=== PATIENT | male | born 1995 | race Caucasian/White ===

== ENCOUNTER 2017-04-11 12:31 | Inpatient (IN) | payer MEDICAID ==
[~2017-04-11] VITALS: Ht 170.2 cm; Wt 71.4 kg
--- NOTE | 2017-04-11 14:18 | PD ---
HPI Chief Complaint: Psychiatric Symptoms Time Seen by Provider: 13:40 Travel History International Travel<30 days: No Contact w/Intl Traveler<30days: No Traveled to known affect area: No History of Present Illness HPI 22-year-old male that presents to the ED for evaluation of Garcia act. Patient was clear at [facility] and was medically clear. Patient apparently has a history of suicidal ideation and try to cut himself on the neck with a plastic fork. Per patient his mother took away all the tonsils because of his suicidal ideation. Patient is with depression. Patient states that he did drink alcohol yesterday. Per patient is being Garcia acted in the past. He superficial scratches to his neck. He was evaluated for the hospitalist had CAT scans and labs that were essentially unremarkable other than for positive alcohol on 200s. Patient was brought here for psych evaluation. Patient was already medically clear. Patient voices no complaints at this time. No other medical issues. Symptoms appear to have worsened yesterday secondary to an argument that she had with mother as well as alcohol. [facility] Social History Alcohol Use: Yes Tobacco Use: No Substance Use: Yes Review of Systems Except as stated in HPI: all other systems reviewed are Neg Physical Exam Narrative GENERAL: SKIN: Warm and dry. Superficial abrasions to the neck. HEAD: Atraumatic. Normocephalic. EYES: Pupils equal and round. No scleral icterus. No injection or drainage. ENT: No nasal bleeding or discharge. Mucous membranes pink and moist. Tongue is midline. No uvula deviation. NECK: Trachea midline. No JVD. CARDIOVASCULAR: Regular rate and rhythm. RESPIRATORY: No accessory muscle use. Clear to auscultation. Breath sounds equal bilaterally. GASTROINTESTINAL: Abdomen soft, non-tender, nondistended. Hepatic and splenic margins not palpable. MUSCULOSKELETAL: Extremities without clubbing, cyanosis, or edema. No obvious deformities. NEUROLOGICAL: Awake and alert. No obvious cranial nerve deficits. Motor grossly within normal limits. Five out of 5 muscle strength in the arms and legs. Normal speech. PSYCHIATRIC: Appropriate mood and affect; insight and judgment normal. Data Data Orders Orders Psych Screen (04/11/17 12:52) [facility] Medical Decision Making Medical Screen Exam Complete: Yes Emergency Medical Condition: Yes Medical Record Reviewed: Yes Differential Diagnosis Depression versus suicidal ideation versus anxiety versus adjustment disorder versus mood disorder versus bipolar disorder versus schizophrenia versus paranoid disorder versus psychosis versus substance abuse versus alcohol abuse versus alcohol induced psychosis versus homicidality addition versus cutting versus personality disorder Narrative Course 22-year-old male that presents to the ED for evaluation of psych. Patient was properly examined and was found to have signs and symptoms consistent psychiatric illness. I reviewed the records from [facility] and they were essentially unremarkable. CAT scan and blood work did show only elevated alcohol in the 200s otherwise unremarkable. Patient was medically clear at the facility. Patient was medically cleared here. No sign of acute medical distress. Patient will be evaluated by psychiatry and pending disposition pending psychiatry evaluation. he understands and agrees this plan. Mental health screening was discussed with the patient. Diagnosis Primary Impression: Suicidal ideations Derrell Blel Apr 11, 2017 14:18
[2017-04-11 18:14] VITALS: BP 129/62; PULSE 72; RESP 18; TEMP 97.8; O2SAT 99
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
[2017-04-11] MEDS ORDERED: ALUMINUM/MAGNESIUM/SIMETH 30 ML CUP PO PRN (19:30)
[2017-04-11] MEDS ORDERED: MAGNESIUM HYDROXIDE SUSP 30 ML CUP PO PRN (19:30)
[2017-04-11] MEDS ORDERED: ACETAMINOPHEN 325 MG TAB PO PRN (19:30)
[2017-04-11 22:27] VITALS: BP 120/55; PULSE 78; RESP 16; TEMP 98.1; O2SAT 100
[2017-04-12 05:37] VITALS: BP 110/64; PULSE 70; RESP 16; TEMP 98.9; O2SAT 98
[2017-04-12 11:37] LABS: BICARBONATE 25.5 MEQ/L (21.0-32.0); BLOOD UREA NITROGEN 10 MG/DL (7-18); CALCIUM 9.3 MG/DL (8.5-10.1); CHLORIDE 105 MEQ/L (98-107); CREATININE 0.74 MG/DL (0.60-1.30); GLOMERULAR FILTRATION RATE 135 ML/MIN (>89); GLUCOSE,RANDOM 91 MG/DL (74-106); SODIUM (NA) 139 MEQ/L (136-145)
[2017-04-12 11:39] LABS: CHOLESTEROL 124 MG/DL (120-200); TRIGLYCERIDES 130 MG/DL (42-150)
[2017-04-12 11:48] LABS: CHOLESTEROL/ HDL RATIO 3.08 RATIO; HDL CHOLESTEROL 40.2 MG/DL (40.0-60.0); LDL CHOLESTEROL 58 MG/DL (0-99)
[2017-04-12] MEDS ORDERED: MAGNESIUM HYDROXIDE SUSP 30 ML CUP PO PRN (12:30)
[2017-04-12] MEDS ORDERED: ACETAMINOPHEN 325 MG TAB PO PRN (12:30)
[2017-04-12] MEDS ORDERED: ALUMINUM/MAGNESIUM/SIMETH 30 ML CUP PO PRN (12:30)
[2017-04-12] MEDS ORDERED: hydrOXYzine HCL 50 MG TAB PO PRN (12:30)
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
[2017-04-12] MEDS: CITALOPRAM HYDROBROMIDE 20 MG TAB PO SCH (15:14)
[2017-04-12 18:45] VITALS: BP 119/65; PULSE 79; RESP 16; TEMP 98.3; O2SAT 95
[2017-04-12 18:46] VITALS: BP 119/65; PULSE 79; RESP 16; TEMP 98.3; O2SAT 95
[2017-04-12] MEDS ORDERED: diphenhydrAMINE HCL 50 MG CAP PO PRN (21:00)
[2017-04-13 05:46] VITALS: BP 113/59; PULSE 80; RESP 16; TEMP 97.8
[2017-04-13] MEDS: CITALOPRAM HYDROBROMIDE 20 MG TAB PO SCH (08:14)
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
--- NOTE | 2017-04-13 15:27 | HHI.PYPN ---
Subjective Chief Complaint: patient depressed with vague suicide attempt, intoxicated Remarks Patient seen in [place] with medical student Giancarlo. Chart review. Discussed with nurse. Patient compliant medications. Patient continues quiet with poor eye contact and somewhat sad face though he denies suicidality homicidality voices or visions. He states he thinks he can return home with family when he leaves here. We need to verify that. For now continue treatment Review of Systems Except as stated in HPI: all other systems reviewed are Neg Mental Status Examination Appearance: Appropriate Consciousness: Alert Orientation: x4 Motor Activity: Normal gait Speech: Unremarkable Language: Adequate Fund of Knowledge: Adequate Attention and Concentration: Adequate Memory: Unremarkable Mood: Sad Affect: Sad Thought Process & Associations: Intact Thought Content: Appropriate Hallucination Type: None Delusion Type: None Suicidal Ideation: No Suicidal Plan: No Suicidal Intention: No Homicidal Ideation: No Homicidal Plan: No Homicidal Intention: No Insight: Poor Judgment: Impulsive Results Vitals/IOs Vital Signs Date Time Temp Pulse Resp B/P (MAP) Pulse Ox O2 Delivery O2 Flow Rate FiO2 04/13/17 05:46 97.8 80 16 113/59 (77) 04/12/17 18:46 95 04/11/17 18:14 Room Air Intake and Output 04/13/17 04/13/17 04/14/17 08:00 16:00 00:00 Intake Total 240 ml Balance 240 ml Assessment & Plan Problem List: (1) Alcohol abuse with intoxication ICD Codes: F10.129 - Alcohol abuse with intoxication, unspecified (2) Major depressive disorder, recurrent, severe with psychotic symptoms ICD Codes: F33.3 - Major depressive disorder, recurrent, severe with psychotic symptoms Assessment & Plan Estimated LOS: days patient continues depressed though at this time denies suicidality. His psychotic features appeared to be resolving also denies suicidality homicidality voices or visions Justification for Cont. Inpt. At this time patient will decompensate the place to the lower level of care Discharge Planning Possible return home with family Request HC Surrog/Guard Advoc?: Charli Etienne MD Apr 13, 2017 15:26
[2017-04-13 18:02] VITALS: BP 128/56; PULSE 72; RESP 16; TEMP 98.5; O2SAT 99
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
[2017-04-14 08:00] VITALS: BP 123/73; PULSE 77; RESP 18; TEMP 98.5; O2SAT 97
[2017-04-14] MEDS: CITALOPRAM HYDROBROMIDE 20 MG TAB PO SCH ×2 (09:01→09:02)
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
[2017-04-14] MEDS ORDERED: CELE20TA PO (14:48)
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
[2017-04-14 17:51] VITALS: BP 156/69; PULSE 76; RESP 17; TEMP 98; O2SAT 100
== END 2017-04-14 22:30 | disposition home or self-care (01) | DRG 885 ==
LOC: NEPJ 12:31 → NEDA 19:30 → H260 19:43
PROVIDERS: ADMIT Psychiatry & Neurology Psychiatry; ATTEND Psychiatry & Neurology Psychiatry
DX: F33.3 Major depressive disorder, recurrent, severe with psychotic symptoms (principal); R45.851 Suicidal ideations; F10.120 Alcohol abuse with intoxication, uncomplicated; Z62.810 Personal history of physical and sexual abuse in childhood; F17.210 Nicotine dependence, cigarettes, uncomplicated; F12.10 Cannabis abuse, uncomplicated; Z91.5 Personal history of self-harm
CPT/HCPCS: 80048; 80061; 83036; 84443; 99285